=== PATIENT | male | born 1945 | race Caucasian/White ===

== ENCOUNTER → 2017-10-10 | Outpatient (CLI) | payer OTHER ==
[~2017-10-10] VITALS: Ht 188 cm; Wt 117.9 kg
[2017-10-10 08:27] LABS: HEMATOCRIT 44.5 % (42.0-52.0); HEMOGLOBIN 15.8 gm/dL (14.0-18.0); MCHC 35.5 g/dL (28.0-37.0); MCV 93.1 fL (80.0-100.0); MPV 7.6 fl. (7.2-11.1); RBC 4.79 mil/uL (4.50-6.00); RDW-CV 11.6 % (10.5-14.5)
[2017-10-10 08:37] LABS: ANION GAP 6 mmol/L (7-16); BUN 14 mg/dL (7-18); CALCIUM 8.4 mg/dL (8.5-10.1); CHLORIDE 107 mmol/L (98-107); CO2 30 mmol/L (21-32); CREATININE 0.9 mg/dL (0.6-1.3); GLUCOSE 108 mg/dL (70-99); POTASSIUM 4.5 mmol/L (3.5-5.1); SODIUM 143 mmol/L (136-145)
[2017-10-10 08:42] LABS: ALBUMIN 3.8 g/dL (3.4-5.0); ALKALINE PHOSPHATASE 60 U/L (46-116); CHOLESTEROL 142 mg/dL (<200); HDL CHOLESTEROL 51 mg/dL (>40); LDL CHOLESTEROL 79 mg/dL (<100); SGOT 16 U/L (15-37); SGPT 26 U/L (30-65); TC:HDL 2.8 Ratio (Not establshd); TOTAL BILIRUBIN 0.6 mg/dL (<0.1-1.0); TOTAL PROTEIN 6.9 g/dL (6.4-8.2); TRIGLYCERIDE 64 mg/dL (<150); VLDL 13 mg/dL (<40)
[2017-10-10 08:45] VITALS: BP 135/75
[2017-10-10 08:45] LABS: SERUM ASSESSMENT Clear
[2017-10-10 11:15] VITALS: BP 129/64
[2017-10-10 11:18] VITALS: BP 126/67
[2017-10-10 11:43] VITALS: BP 146/75
[2017-10-10 11:56] VITALS: BP 126/66
[2017-10-10 12:31] VITALS: BP 110/65
--- NOTE | 2017-10-10 13:58 | CARD ---
[address] [address] CARDIAC CATH REPORT Name: BARBY JOHNSON Room: [facility]#: [id number] Admission: 10/10/17 Attend Phys: Tyree Awan MD Discharge: Date of : 49 Report #: [id number] THIS REPORT FOR: //name// APPROVED REPORT Patient Details Patient Status: Out-Patient Room #: The patient is a 72 year-old male Event Personnel Krystin Chase RN, Zakia Mir RN RN, Tyree Awan Air Battle Manager, Justin Sandra Scrub Procedures Performed Art Access - R radial artery Left Heart Cath w/LT [facility] [id number] LHCLV , Left Ventriculogram Procedure Narrative The patient was brought electively to the Cardiac Catheterization Laboratory and was prepped and draped in a sterile manner. The right wrist was infiltrated with 1% Lidocaine subcutaneous anesthesia. A Slender Glidesheath sheath was inserted into the right radial artery. Coronary angiography was performed using coronary diagnostic catheters. The right coronary system was accessed and visualized with a DCR: Browning 4.0 5fr catheter. The left coronary system was accessed and visualized with a DCR: Browning 4.0 5fr catheter. The left ventricle was accessed and visualized with a PC: Angled Pig 5fr catheter. Closure device was deployed with a Fr Vasc-Band Lng 27cm. The patient tolerated the procedure well and there were no complications associated with the procedure. There was no hematoma. Intraoperative Conscious Sedation Sedation start time: 1040 Case end Time: 1057 Fentanyl 50.0 mcg Versed 2.0 mg Fluoro Time: 3.1 minutes Dose: 1254 mGy Contrast Type and Amount: Omnipaque 110 ml Diagnostic Cath Left Main normal LAD proximal 30%, mid 40%,mid to distal portion moderate bridging, without disruption of flow distal small vessel, mild 20% [place] [address] CARDIAC CATH REPORT Name: BARBY JOHNSON Room: [facility]#: [id number] Admission: 10/10/17 Attend Phys: Tyree Awan MD Discharge: Date of : 49 Report #: [id number] Circumflex proximal mid and distal normal OM1 small OM2 large, normal L PDA medium sized, normal Right Coronary nondominant, normal Left Ventriculography Ejection Fraction was based off patient's . The left ventricle is normal in size with normal contractility. The left ventricular ejection fraction is estimated to be 60%. Left ventricular wall motion abnormalities are not present. 1. CAD- mild to moderate involving LAD 2. Normal LV function 3. Intracoronary bridge Hemodynamics The aortic pressure is 122/64 mmHg with a mean of 87 mmHg. The left ventricular pressure is 118/10 mmHg with a mean of mmHg. The left ventricular end diastolic pressure is 18 mmHg. There was no gradient across the aortic valve upon pullback. Diagnostic Cath Approved by: Tyree Awan MD Date/Time: 10/10/2017 11:31:52 <ELECTRONICALLY SIGNED> By: Tyree Awan MD, [facility] 10/10/17 1358 1358 [id number] Awan MD, FAC /INF
--- NOTE | 2017-10-10 15:27 | EKG ---
[place] [address] ELECTROCARDIOGRAM REPORT Name: BARBY JOHNSON Room: [facility]#: [id number] Admission: 10/10/17 Attend Phys: Tyree Awan MD Discharge: Date of : 49 Report #: [id number] THIS REPORT FOR: //name// [facility] Test Date: 2017-10-10 Test Time: 09:19:22 Pat Name: BARBY JOHNSON Department: Room: Gender: M Product Manager: : 1945 Requested By: Tyree Awan Order Number: [id number] Reading MD: Tyree Awan Measurements Intervals [place] Rate: 54 P: 54 ID: 210 QRS: -30 QRSD: 98 T: 26 QT: 448 QTc: 425 Interpretive Statements Sinus rhythm Left axis deviation Abnormal R-wave progression, late transition No previous ECG available for comparison Electronically Signed On 10-10-2017 15:27:22 ENDODONTIC ASSISTANT by Tyree Awan [email or web address] <ELECTRONICALLY SIGNED> By: Tyree Awan MD, [facility] 10/10/17 1527 D: [id number] 8 Tyree Awan MD, FAC /EPI
== END | disposition home or self-care (01) ==
LOC: M.CL 07:45
PROVIDERS: Internal Medicine Cardiovascular Disease
DX: I25.10 Atherosclerotic heart disease of native coronary artery without angina pectoris (principal); I10 Essential (primary) hypertension; E78.00 Pure hypercholesterolemia, unspecified; F43.10 Post-traumatic stress disorder, unspecified; Z87.891 Personal history of nicotine dependence

== ENCOUNTER → 2020-01-04 | Outpatient (CLI) | payer MEDICARE ==
[2020-01-04] VITALS (8 sets, daily range): BP systolic 115–146; BP diastolic 45–66
[~2020-01-04] VITALS: Ht 188 cm; Wt 129.5 kg
[~2020-01-04] MED LIST: ABILIFY 5 MG TAB5 M1 PO; ASA81BEC; CARVEDILOL25 MG PO; COZAAR100 MG PO; FOSAMAX 70 MG T70 MG PO; LIPITOR40 MG PO; MINIPRESS2 MG PO; NITROSTAT0.4 M1 SUBLING; SERTRALINE HCL100 MG PO; TERAZOSIN HCL5 MG PO; TRIAMTERENE/HCT1 CA1 PO; VENTOLIN HFA INH8 GM
[2020-01-04 09:17] LABS: HEMOGLOBIN 15.2 gm/dL (14.0-18.0); MCH 32.7 pg (26.0-34.0); MCHC 34.4 g/dL (28.0-37.0); MPV 7.7 fl. (7.2-11.1); RBC 4.63 mil/uL (4.50-6.00); RDW-CV 12.4 % (10.5-14.5); WBC 8.9 thou/uL (4.0-11.0)
[2020-01-04 09:18] LABS: CALCIUM 8.6 mg/dL (8.5-10.1); POTASSIUM 5.4 mmol/L (3.5-5.1)
[2020-01-04 09:21] LABS: APTT 28.2 Seconds (25.0-31.3); PROTIME 10.2 Seconds (9.20-11.50)
[2020-01-04 09:23] LABS: ALBUMIN 3.8 g/dL (3.4-5.0); TOTAL BILIRUBIN 0.7 mg/dL (<0.1-1.0); TOTAL PROTEIN 7.2 g/dL (6.4-8.2)
--- NOTE | 2020-01-04 10:15 | EKG ---
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: : 1945 Requested By: Bakari Viveros Order Number: [id number] Andrew MD: Ki Ragsdale Measurements Intervals [place] Rate: 57 P: 23 WI: 208 QRS: -30 QRSD: 92 T: 40 QT: 441 QTc: 430 Interpretive Statements Sinus rhythm Left axis deviation Abnormal R-wave progression, late transition Compared to ECG 10/10/2017 09:19:22 No significant changes Electronically Signed On 01-04-2020 10:14:25 CDT by Ki Ragsdale [email or web address] <ELECTRONICALLY SIGNED> By: Ki Ragsdale MD, [facility] 01/04/20 1014 0904 0904 Ki Ragsdale MD, [facility] /EPI
--- NOTE | 2020-01-04 13:48 | CARD ---
[address] [address] CARDIAC CATH REPORT Name: BARBY JOHNSON Room: [facility]#: [id number] Admission: 01/04/20 Attend Phys: Bakari Viveros MD Discharge: Date of : 49 Report #: [id number] THIS REPORT FOR: //name// cc: Letty Lindquist MD, Paula V. MD ~ APPROVED REPORT Study performed: 01/04/2020 09:05:04 Patient Details Patient Status: Out-Patient Room #: The patient is a 74 year-old male Event Personnel Bakari Viveros Anglesmith Helper, Zakia Mir RN Airworthiness Inspector, Damari Sarmiento RN Airworthiness Inspector, Ken Chavez RTR Scrub, La Don RTR Monitor Procedures Performed Art Access - R femoral artery, Left Heart Cath w/or w/o Coronaries LHC , Hemostasis w/ Mynx Admission/Lab Medications/Medications given during procedure Oxygen Nasal cannula 2 l per min, Midazolam (Versed) IV 2 mg, Fentanyl IV 50 mcg, Lidocaine Subcut 18 ml Procedure Narrative The patient was brought electively to the Cardiac Catheterization Laboratory and was prepped and draped in a sterile manner. The right femoral groin area was infiltrated with 1% Lidocaine subcutaneous anesthesia. A 6F Garnavillo sheath was inserted into the right femoral artery. Coronary angiography was performed using coronary diagnostic catheters. The right coronary system was accessed and visualized with a 6F JR4 catheter. The left coronary system was accessed and visualized with a 6F JL4 catheter. The left ventricle was accessed and visualized with a 6F Pigtail catheter. Left ventricular/Aortic Valve gradient assessed via catheter pullback. Left ventriculogram was performed in THOMAS projection. Pre-demployment femoral angiogram was performed . Closure device was deployed with a 6 Fr Mynx. The patient tolerated the procedure well and there were no complications associated with the procedure. There was no hematoma. Intraoperative Conscious Sedation Sedation start time: 10:01 Case end Time: 10:12 [place] [address] CARDIAC CATH REPORT Name: TERRY JOHNSONAVERY Arreola Room: [facility]#: [id number] Admission: 01/04/20 Attend Phys: Bakari Viveros MD Discharge: Date of : 49 Report #: [id number] Fentanyl 50 mcg Versed 2 mg Fluoro Time: 1.7 minutes Dose: DAP 91639 cGycm2 1115 mGy Contrast Type and Amount: Visipaque 80 ml Diagnostic Cath Left Main The left main coronary artery is normal and bifurcates into an LAD and circumflex coronary arteries. LAD Left anterior descending coronary artery is mildly calcified in its proximal midportion with up to 10% plaquing. The distal vessel is free of significant disease. Diagonal 1 A small first diagonal branch is normal in appearance. Diagonal 2 A moderate size second diagonal branch was normal. Circumflex The circumflex coronary artery is normal in its proximal mid and distal portion. OM1 A small first obtuse marginal branch is normal. OM2 A moderate size second obtuse marginal branch is normal. L PDA The circumflex PDA is normal. L CHICHO A circumflex posterolateral branch is normal. Right Coronary The right coronary artery is a small and nondominant vessel that is normal in its proximal mid and distal portions. Left Ventriculography The left ventricle is normal in size with normal contractility. The left ventricular ejection fraction is estimated to be 65-70%. Left ventricular wall motion abnormalities are not present. Hemodynamics The aortic pressure is 144/73 mmHg with a mean of 78 mmHg. The left ventricular pressure is 141/14 mmHg with a mean of mmHg. The left ventricular end diastolic pressure is 26 mmHg. Conclusion 1. Minimal coronary artery plaquing with constipation as outlined above. No occlusive disease noted. 2. Moderately elevated left ventricular end-diastolic pressure consistent with acute on chronic diastolic heart failure. 3. Normal left ventricular systolic function[place] [address] CARDIAC CATH REPORT Name: BARBY JOHNSON Room: [facility]#: [id number] Admission: 01/04/20 Attend Phys: Bakari Viveros MD Discharge: Date of : 49 Report #: [id number] 1. Continue medical management and aggressive risk factor modification. <ELECTRONICALLY SIGNED> By: Bakari Viveros MD, FACC 01/04/20 1347 134 1347Michaerosy Viveros MD, FACC /INF
[2020-01-04 13:58] LABS: CHOLESTEROL 133 mg/dL (<200); HDL CHOLESTEROL 47 mg/dL (>40); LDL CHOLESTEROL 69 mg/dL (<100); SERUM ASSESSMENT Clear; TC:HDL 2.8 Ratio (Not establshd); TRIGLYCERIDE 85 mg/dL (<150); VLDL 17 mg/dL (<40)
== END | disposition home or self-care (01) ==
LOC: M.CL 08:22
PROVIDERS: Internal Medicine Cardiovascular Disease
DX: R94.39 Abnormal result of other cardiovascular function study (principal); I25.10 Atherosclerotic heart disease of native coronary artery without angina pectoris; I50.1 Left ventricular failure, unspecified; I11.0 Hypertensive heart disease with heart failure; E78.00 Pure hypercholesterolemia, unspecified; Z87.442 Personal history of urinary calculi; Z98.890 Other specified postprocedural states; Z79.899 Other long term (current) drug therapy; Z88.0 Allergy status to penicillin; Z88.8 Allergy status to other drugs, medicaments and biological substances

== ENCOUNTER → 2020-03-03 | Outpatient (CLI) | payer MEDICARE ==
--- NOTE | 2020-03-13 22:12 | SLEEP ---
[address] [address] SLEEP STUDY REPORT Name: BARBY JOHNSON Room: [facility]#: [id number] Admission: 03/03/20 Attend Phys: Karli Hancock RN Discharge: Date of : 49 Report #: [id number] THIS REPORT FOR: //name// CC: Letty [facility] This study has been reviewed in its entirety by a board certified sleep specialist DATE OF SERVICE: 03/03/2020 HOME SLEEP STUDY REFERRING PHYSICIAN: Karli Hancock APRN. The patient is 74 years old who weighs 285 pounds with a BMI of 36. The patient's Cornelius score was 3. The patient underwent home sleep study performed at [facility]. Total recording time was 450 minutes. During the night study, the patient had no central or mixed apneas. The patient had 318 obstructive apneas and 298 hypopneas. The patient's AHI was 107 per hour. Nocturnal oximetry study revealed an average oxygen saturation of 87% with a lowest of 66%, 366 minutes were spent in oxygen saturation less than 90%, and 100 minutes with saturation of less than 85%. EKG with a mean heart rate of 65 beats per minute with a maximum of 92 beats per minute. IMPRESSION: 1. Severe obstructive sleep apnea at an AHI of 101 per hour. 2. Moderate to severe nocturnal hypoxia secondary to obstructive sleep apnea. RECOMMENDATIONS: 1. The patient would benefit from in-lab CPAP titration study. Alternate treatment option would include home auto-titration study. 2. Once the patient is optimally treated with CPAP, then follow up in 4-6 weeks to assess compliance and to document clinical improvement. 3. Weight loss is strongly advised. 4. Avoid DUST BRUSH [place]SEM[place] [address] SLEEP STUDY REPORT Name: BARBY JOHNSON Room: [facility]#: [id number] Admission: 03/03/20 Attend Phys: Karli Hancock RN Discharge: Date of : 49 Report #: [id number] 5. Cautioned regarding driving until symptoms of sleep apnea resolve with the use of CPAP. <ELECTRONICALLY SIGNED> By: Rico Leos MD 03/13/20 2212 180 1933Aradha Leos MD /diogenes
== END ==
LOC: M.SLEEPLAB 08:44
PROVIDERS: ATTEND Nurse Practitioner
DX: G47.33 Obstructive sleep apnea (adult) (pediatric) (principal); G47.34 Idiopathic sleep related nonobstructive alveolar hypoventilation

== ENCOUNTER → 2020-04-16 | Outpatient (CLI) | payer MEDICARE ==
--- NOTE | 2020-04-17 23:50 | SLEEP ---
[address] [address] SLEEP STUDY REPORT Name: BARBY JOHNSON Room: [facility]#: [id number] Admission: 04/16/20 Attend Phys: Karli Hancock RN Discharge: Date of : 49 Report #: [id number] THIS REPORT FOR: //name// CC: Letty MCCLENDON This study has been reviewed in its entirety by a board certified sleep specialist DATE OF SERVICE: 04/16/2020 SLEEP STUDY REFERRING PHYSICIAN: HAKAN Rascon HISTORY: The patient is 74-year-old, who weighs 285 pounds with a BMI of 36.6. The patient's Ina score was 7. The patient had a diagnosis of sleep apnea by home sleep study and was referred for in-lab CPAP/BiPAP titration study. During the night study, the patient spent 460 minutes in bed, but slept for 215 minutes with a low sleep efficiency of 47%. Sleep latency was prolonged at 110 minutes with a REM latency of 276 minutes. Sleep architecture showed a normal stage 1 and stage 2 sleep, increased slow wave sleep and reduced REM sleep, which was 12.8% of total sleep time. EKG monitoring revealed an average heart rate of 56 beats per minute. No sustained arrhythmias observed. PLMS were seen at an index of 85 per hour and 5 per hour caused EEG arousals. The patient was initially started at CPAP. However, due to difficulty in sleep onset and due to the patient's comfort, the patient was switched to BiPAP starting at a pressure of 12/10. The pressure was titrated up to 25/18. At the final pressure, the patient slept for 63.8 minutes. The patient had 27.5 minutes of supine REM sleep. The patient's AHI did significantly improve and was reduced to 8.5 per hour. Oxygen saturation remained above 88% with a lowest of 79%. This is not an optimum BiPAP pressure, but overall significant improvement in the patient's AHI since AHI was persistently high at lower pressures. IMPRESSION: 1. Sleep apnea diagnosed by previous sleep study. 2. Reduced sleep efficiency resulting from sleep onset insomnia. 3. [place] [address] SLEEP STUDY REPORT Name: BARBY JOHNSON Room: [facility]#: [id number] Admission: 04/16/20 Attend Phys: Karli Hancock RN Discharge: Date of : 49 Report #: [id number] RECOMMENDATIONS: 1. BiPAP at a pressure of 25/18 should be used on a nightly basis. Although the patient's AHI was still 8.5 per hour at this final pressure, but there was significant improvement in AHI when the patient slept at lower BiPAP pressures. 2. The patient should have a followup download data in 30 days to make sure AHI remains less than 5 per hour and the patient has clinical improvement. 3. Avoid SHIRT CREASER depressants. 4. Cautioned regarding driving until symptoms of sleep apnea resolve with the use of BiPAP. 5. The patient should also be further evaluated for symptoms of restless legs during the day. 6. If patient's insomnia is chronic, then it should be further evaluated and treated according to the etiology. <ELECTRONICALLY SIGNED> By: Rico Leos MD 04/17/20 2350 1643 1707Aradha Leos MD /nt
== END ==
LOC: M.SLEEPLAB 19:52
PROVIDERS: ATTEND Nurse Practitioner
DX: G47.33 Obstructive sleep apnea (adult) (pediatric) (principal); G47.61 Periodic limb movement disorder